=== PATIENT | female | born 1950 | race Caucasian/White ===

== ENCOUNTER 2023-10-18 01:01 | Observation (INO) | payer OTHER, BC ==
[2023-10-18] MEDS ORDERED: ALPRAZolam 0.25 MG TABLET PO PRN ×2 (01:30→11:26)
[2023-10-18] MEDS ORDERED: SODIUM CHLORIDE 0.9% 1000 ML INFUS.BAG IV ONE (01:33)
[2023-10-18] MEDS ORDERED: ALPRAZolam 0.25 MG TABLET ONE (01:52)
[2023-10-18 02:05] LABS: EOS % 1.8 % (0-4.5); HEMATOCRIT 40.5 % (32.4-45.2); HEMOGLOBIN 13.8 GM/dL (10.7-15.3); LYMPH % 29.3 % (8-40); MCH 29.8 pg (25.7-33.7); MCHC 34.1 g/dl (32.0-36.0); MEAN CELL VOLUME 87.3 fl (80-96); MEAN PLT VOLUME 7.2 fl (7.5-11.1); MONO % 10.6 % (3.8-10.2); NEUT % 57.3 % (42.8-82.8); PLATELET COUNT 237 10^3/uL (134-434); RBC 4.64 M/mm3 (3.60-5.2); RDW 14.4 % (11.6-15.6); WHITE BLOOD COUNT 4.9 K/mm3 (4.0-10.0)
[2023-10-18 02:26] LABS: POTASSIUM 3.9 mmol/L (3.5-5.1)
[2023-10-18 02:28] LABS: CALCIUM 9.2 mg/dL (8.5-10.1)
[2023-10-18 02:29] LABS: ALBUMIN 3.5 g/dl (3.4-5.0); BLOOD UREA NITROGEN 20.6 mg/dL (7-18)
[2023-10-18 02:33] LABS: BILIRUBIN,TOTAL 1.4 mg/dL (0.2-1)
[2023-10-18 02:34] LABS: TOT PROT 6.5 g/dl (6.4-8.2)
[2023-10-18] MEDS ORDERED: ASPIRIN 81 MG CHEWABLE TABLETS PO ONE (04:28)
[2023-10-18] MEDS ORDERED: ASPIRIN 81 MG CHEWABLE TABLETS ONE (04:35)
[2023-10-18] MEDS ORDERED: DEXTROSE 5%-NORMAL SALINE 1,000 ML IV SCH (05:00)
[2023-10-18 05:06] LABS: MAGNESIUM 2.1 mg/dL (1.8-2.4)
[2023-10-18 05:09] LABS: PHOSPHOROUS 2.8 mg/dL (2.5-4.9)
[2023-10-18 08:38] LABS: CALCIUM 9.5 mg/dl (8.5-10.1); CREATININE 0.8 mg/dl (0.6-1.3); POTASSIUM 4.4 mmol/L (3.5-5.1)
[2023-10-18] MEDS: TIMOLOL 0.5% OPHTHALMIC SOL 5 ML BOTTLE OU SCH ×2 (10:45→21:20)
[2023-10-18] MEDS: ACETAMINOPHEN 325 MG TABLET (FP) PO PRN (19:50)
[2023-10-18 19:59] VITALS: BMI 24.7
[2023-10-18] MEDS: CYCLOBENZAPRINE HCL 10 MG TABLET (FP) PO SCH ×2 (21:20→21:24)
[2023-10-19] MEDS: ACETAMINOPHEN 325 MG TABLET (FP) PO PRN (06:53)
[2023-10-19 08:54] LABS: CALCIUM 9.1 mg/dl (8.5-10.1); CREATININE 0.9 mg/dl (0.6-1.3); PHOSPHOROUS 3.4 (2.5-4.9); POTASSIUM 4.6 mmol/L (3.5-5.1)
[2023-10-19 09:09] LABS: HEMATOCRIT 40.4 % (32.4-45.2); HEMOGLOBIN 13.3 G/dL (10.7-15.3); MCH 29.6 pg (25.7-33.7); MCHC 32.9 g/dl (32.0-36.0); MEAN CELL VOLUME 90.1 fl (80-96); MEAN PLT VOLUME 7.7 fl (7.5-11.1); PLATELET COUNT 232.6 10^3/uL (134-434); RBC 4.48 10^6/uL (3.60-5.2); RDW 15.5 % (11.6-15.6); WHITE BLOOD COUNT 4.5 10^3/uL (4.0-10.8)
[2023-10-19 10:01] VITALS: BP 130/65; PULSE 65; RESP 18; TEMP 98.3
[2023-10-19] MEDS: TIMOLOL 0.5% OPHTHALMIC SOL 5 ML BOTTLE OU SCH (10:45)
== END 2023-10-19 12:38 | disposition home or self-care (01) ==
LOC: FER 01:01 → FM/S 08:34
PROVIDERS: ADMIT Internal Medicine; ATTEND Internal Medicine
PROC: 3E0337Z Introduction of Electrolytic and Water Balance Substance into Peripheral Vein, Percutaneous Approach (ICD-10-PCS; principal; 2023-10-18)
PROC: 0DJD8ZZ Inspection of Lower Intestinal Tract, Via Natural or Artificial Opening Endoscopic (ICD-10-PCS; 2023-10-18)
PROC: 3E0337Z Introduction of Electrolytic and Water Balance Substance into Peripheral Vein, Percutaneous Approach (ICD-10-PCS; 2023-10-18)
DX: I21.4 Non-ST elevation (NSTEMI) myocardial infarction (principal); R55 Syncope and collapse; R77.8 Other specified abnormalities of plasma proteins; F41.0 Panic disorder [episodic paroxysmal anxiety]; G89.29 Other chronic pain; M54.2 Cervicalgia; R53.1 Weakness; F41.9 Anxiety disorder, unspecified; Z87.19 Personal history of other diseases of the digestive system; K58.9 Irritable bowel syndrome, unspecified; Z87.891 Personal history of nicotine dependence; Z53.9 Procedure and treatment not carried out, unspecified reason
CPT/HCPCS: 0241U-QW; 36415; 70450-TC; 71045-TC-FY; 80048; 80053; 83735; 84100; 84439; 84443; 84484; 85025; 85027; 93005; 93306-TC; 96360; 96361; 97116-GP; 97161-GP; 99285-25; G0378

== ENCOUNTER 2023-11-23 12:32 | Emergency (ER) | payer OTHER, BC ==
[2023-11-23 12:51] VITALS: BP 117/85; PULSE 76; RESP 16; TEMP 98; BMI 24.0
[2023-11-23] MEDS ORDERED: CLINDAMYCIN HCL 150 MG CAPSULE (FP) PO ONE (13:32)
[2023-11-23] MEDS ORDERED: CLINDAMYCIN HCL 150 MG CAPSULE (FP) ONE (13:41)
== END 2023-11-23 13:48 | disposition home or self-care (01) ==
LOC: FER 12:32
PROC: 0H9GXZZ Drainage of Left Hand Skin, External Approach (ICD-10-PCS; principal; 2023-11-23)
DX: L03.012 Cellulitis of left finger (principal); R22.32 Localized swelling, mass and lump, left upper limb
CPT/HCPCS: 99283-25